=== PATIENT | male | born 1945 | race Two or more races ===

== ENCOUNTER 2016-03-08 12:54 | Emergency (ER) | payer MEDICARE ==
--- NOTE | 2016-03-08 14:36 | ED Physician Chart ---
Chief Complaint/HPI - Patient Information Date Seen:: 03/08/16 Time Seen:: 14:33 Chief Complaint:: ALCOHOL INTOXICATION. History of Present Illness:: According to transporting EMS, the patient was foundPassed out in a parking lot. The patient states that he went for a walk last evening and began drinking. When he got to the parking lot he did not trip or fall but laid down in order to sleep. He denies any headache, neck pain, chest pain, respiratory distress, nausea, vomiting, or abdominal pain. Allergies:: Allergies Allergy/AdvReac Type Severity Reaction Status Date / Time No Known Allergies Allergy Verified 09/28/15 20:54 Vitals:: Vital Signs - 8 hr 03/08/16 13:08 Temp 98.5 F HR 109 RR 22 BP 138/80 O2 Sat % 92 Review of Systems - Review of Systems General/Constitutional: No fever, No chills, No weight loss, No weakness, No edema, No loss of appetite Skin: No skin lesions, No rash Head: No headache, No light-headedness Eyes: No loss of vision, No pain, No diplopia ENT: No earache, No nasal drainage, No sore throat, Other ( The patient states he is missing multiple teeth due to cavities and trauma over the past 20 years.) Cardio Vascular: No chest pain Pulmonary: No SOB, No cough GI: No nausea, No vomiting, No diarrhea G/U: No dysuria, No frequency Musculoskeletal: No bone or joint pain, Back pain ( The patient acknowledges that he has chronic low back pain. The discomfort in his low back is not acute.) , No muscle pain Endocrine: No polyuria, No polydipsia Psychiatric: Other ( Alcohol abuse.) Hematopoietic: No bruising, No lymphadenopathy Allergic/Immuno: No urticaria, No angioedema Neurological: No syncope, No weakness, No headache, No seizure Past Medical History - Past Medical History Social History: Smoker, Other ( Retired.) Family Medical History - Family Member Mother History Unknown: Yes Ethnicity: Unknown Living Status: Physical Exam - Physical Examination General/Constitutional: No distress, Non-toxic appearing Other Gen/Cons comments:: Initially the patient was ambulatory with an unsteady and white base gate. Over the course of the emergency department stay and rehydration with the banana bag the patient became much more awake and alert and escape became normal. Other Head comments:: No visible or palpable evidence of head trauma. Eyes: PERRL, EOMI Other Eyes comments:: patient had horizontal nystagmus when looking to both the right and the left side. He had significant conjunctival hyperemia bilaterally. No exudates were present. Skin: No rash, No skin lesions, No ecchymosis ENMT: Nasal exam nl, Oropharynx nl, Tonsils nl Other ENMT comments:: Oral hydration was adequate. Patient was missing all but about four or five of his teeth. The remaining teeth are in poor repair. Normal gag reflex. Neck: Nontender, Full ROM w/o pain, No JVD, No nuchal rigidity, No mass, No stridor Respiratory: Nl effort/Exclusion Other Respiratory comments:: The patient had scattered rhonchi and expiratory wheezes throughout all dodd. Patient was in no respiratory distress and his His initial oxygen saturation was 92. This was on room air. The patient's respiration rate was 22 and he has a mild tachycardia. Cardio Vascular: RRR, No murmur, gallop, rubs, NL S1 S2 Other Cardio Vascular comments:: Adequate pulses in all four extremities. Other GI comments:: The patient's abdomen was markedly distended with ascites. There was mild prominence of the venous pattern in the abdominal wall. Bowel sounds were normally present. The abdomen was slightly taught but completely nontender to palpation. No rebound regarding present. No hernias. No pulsatile masses. I was unable to substation operator helper either the spleen or the liver. : No CVA tenderness Extremities: No tenderness or effusion, Full ROM, normal strength in all extremities, No edema Other Neuro/Psych comments:: The patient was oriented to the year and month but not the day of the week. He was oriented to the fact he was in a hospital.When asked for the date he said it was about the 11. The sensory examination was intact to light touch in all four extremities. The patient strength was normal in all four extremities. Deep tendon reflexes were +2 throughout. At the time of discharge the patient gait had normalized. Misc: No paraspinal tenderness Other Misc comments:: the patient had minimal tenderness on palpation over the bill for five region of the back. Negative straight leg raising. Labs/Radiology/EKG Results - Lab Results Results: No laboratory studies or x-ray studies were obtained. Assessment - Assessment General Assessment: CASE SUMMARY: the 70-year-old male was brought to the emergency department by EMS from a parking lot where he was sleeping on the ground. Patient had been drinking and had a strong odor of alcohol about his person. He was awake but less than fully alert. He was cooperative and went along with plans for observation until he was safe to discharge. During his stay the patient received 1 L of normal saline which contained magnesium sulfate, thiamine, folate and multivitamins. The patient was observed until he was speaking clearly and ambulating without difficulty. The patient had called a friend to come pick him up and take him home. He was released when the friend arrived. Advised to follow up with AA for help with alcoholism. MDM FOR DDX OF ACUTE INTOXICATION: NOT Delirium tremens based on history and physical examination. NOT Seizure based on patient's history and observation in the emergency department. NOT acute head injury based on history and physical examination of the patient. ED Septic Shock - . Is Septic Shock (SBP<90, OR Lactate>4 mmol\L) present?: No - <6hrs of presentation: Vital Signs: Vital Signs - 8 hr 03/08/16 13:08 Temp 98.5 F HR 109 RR 22 BP 138/80 O2 Sat % 92 Reassessment (Disposition) - Reassessment Reassessment Condition:: Improved - Diagnosis Diagnosis:: ACUTE ALCOHOL INTOXICATION, ASCITES ED Discharge Plan - Patient Disposition Admit/Discharge/Transfer: PT DISCHARGED HOME Condition at Disposition: Improved Instructions: Alcohol Intoxication
[2016-03-08] MEDS ORDERED: Multivitamin Inj 10 ML, Thiamine HCL 100 MG, Magnesium Sulfate 2 GM, Folic Acid 1 MG in... IV ONE (15:04)
[2016-03-08] MEDS ORDERED: Magnesium Sulfate 1 gm/2 mL 2mL Vial IV ONE (15:27)
[2016-03-08] MEDS ORDERED: Thiamine 100 mg/mL 2mL Vial ONE (15:29)
== END 2016-03-08 18:00 | disposition home or self-care (01) ==
LOC: ER 12:54
DX: F10.129 Alcohol abuse with intoxication, unspecified (principal); R18.8 Other ascites; F17.200 Nicotine dependence, unspecified, uncomplicated
CPT/HCPCS: 99284; 96365; J3411; J3475; J7030; X6226; Z7502

== ENCOUNTER 2016-05-01 09:05 | Inpatient (IN) | payer MEDICARE ==
[2016-05-01] MEDS ORDERED: EPINEPHRine /Lidocaine 1% 20 mL Vial INJ ONE (09:33)
[2016-05-01] MEDS ORDERED: Silver Nitrate 1 Swab TP ONE (09:34)
--- NOTE | 2016-05-01 10:01 | ED Physician Chart ---
Chief Complaint/HPI - Patient Information Date Seen:: 05/01/16 Time Seen:: 09:30 Chief Complaint:: epistaxis History of Present Illness:: spontaneous onset at 0730 of epistaxis. Patient unsure from which nostril the bleeding started. Estimates about 1 cup of blood loss. Allergies:: Allergies Allergy/AdvReac Type Severity Reaction Status Date / Time No Known Allergies Allergy Verified 05/01/16 09:14 Vitals:: Vital Signs - 8 hr 05/01/16 09:05 Temp 99.1 F HR 119 RR 16 BP 124/75 O2 Sat % 91 Historian:: Patient Review:: Nurse's Note Reviewed Review of Systems - Review of Systems General/Constitutional: No fever, No chills Skin: No skin lesions Head: No headache Eyes: No loss of vision ENT: Other (epistaxis) Cardio Vascular: No chest pain Pulmonary: No SOB GI: No nausea, No vomiting G/U: No dysuria, No frequency Musculoskeletal: No bone or joint pain Endocrine: No polyuria, No polydipsia Psychiatric: No prior psych history Hematopoietic: No bruising, No lymphadenopathy Allergic/Immuno: No urticaria, No angioedema Neurological: No syncope, No focal symptoms Past Medical History - Past Medical History Past Medical History: HTN, Dyslipidemia, Other (hypercholesterolemia) Family History: Diabetes Melitus Social History: Non Smoker, Alcohol, Other (drinks about 12 oz beer per day.) Surgical History: Hernia Psychiatricy History: None Medication: Reviewed Family Medical History - Family Member Mother History Unknown: Yes Ethnicity: Unknown Living Status: Physical Exam - Physical Examination General/Constitutional: Well-developed, well-nourished, Alert Eyes: Lids, conjuctiva normal, PERRL Skin: Nl inspection, No rash, No skin lesions, No ecchymosis ENMT: External ears, nose nl, TM canals nl Other ENMT comments:: appears that bleeding site is left nasal septum but minimal to no bleeding at present. Throat: many lower teeth absent. Neck: No nuchal rigidity Respiratory: Clear to Auscultation Other Cardio Vascular comments:: heart sounds faint; pulse regular GI: No tenderness/rebounding/guarding : No CVA tenderness Extremities: No tenderness or effusion, Full ROM Neuro/Psych: Alert/oriented, No focal deficits Misc: Normal back Assessment - Assessment General Assessment: 1% xylocaine with epi on 2 x 2 gauze in left nares; then silver nitrate cautery to left nasal septum; initially put in a rapid rhino with an anterior pack only but replaced it with one with both an anterior and posterior pack. At 1155 bleeding had stopped. Patient may well have had a posterior epistaxis. Patient instructed to see PCP tomorrow for removal of nasal pack. ED Septic Shock - . Is Septic Shock (SBP<90, OR Lactate>4 mmol\L) present?: No - <6hrs of presentation: Vital Signs: Vital Signs - 8 hr 05/01/16 09:05 Temp 99.1 F HR 119 RR 16 BP 124/75 O2 Sat % 91 Reassessment (Disposition) - Reassessment Reassessment Condition:: Improved - Diagnosis Diagnosis:: epistaxis left nares - Aftercare/Follow up Instructions Aftercare/Follow-Up Instructions:: Refer to Discharge Instructions - Patient Disposition Discharge/Transfer:: Home Condition at Disposition:: Stable, Improved ED Discharge Plan - Patient Disposition Instructions: Nosebleed
[2016-05-01] MEDS ORDERED: Sodium Chloride 0.9% 1,000 ML IV ONE (12:28)
[2016-05-01 12:38] LABS: HEMATOCRIT 34.1 % (39.0-49.0); MEAN CELL VOLUME 99.3 fl (80-99); MEAN CORPUSCULAR HGB CONC 35.3 pg (28.0-36.0); MEAN PLATELET VOLUME 11.4 fl; PLATELET COUNT 61 Th/cmm (150-400); RED BLOOD COUNT 3.43 Mil/cmm (3.80-5.80); RED CELL DISTRIBUTION WIDTH 14.7 % (11.5-20.0); WHITE BLOOD COUNT 10.4 Th/cmm (4.8-10.8)
[2016-05-01 13:04] LABS: BASOPHIL 1 % (0-3); EOSINOPHIL 1 % (0-5); NEUTROPHILS 54 % (40-80); PLATELET ESTIMATE DECREASED PLATELETS (NORMAL); PLATELET MORPHOLOGY PLATELET CLUMPS SEEN (NORMAL); TOTAL CELLS COUNTED 100
[2016-05-01 13:07] LABS: ANION GAP 12.7 (7.0-16.0); BUN - UREA NITROGEN 16 mg/dL (7-25); CALCIUM SERUM 8.5 mg/dL (8.6-10.3); CARBON DIOXIDE 21.5 mEq/L (21.0-31.0); CHLORIDE 105 mEq/L (98-107); CREATININE - SERUM 0.8 mg/dL (0.7-1.3); GLUCOSE 192 mg/dL (70-105); MAGNESIUM 1.6 mg/dL (1.9-2.7); POTASSIUM SERUM 3.2 mEq/L (3.5-5.1); SODIUM SERUM 136 mEq/L (136-145)
[2016-05-01 13:24] LABS: INR 1.26 (0.5-1.4); PROTHROMBIN TIME (TEST) 13.3 SECONDS (9.5-11.5)
[2016-05-01 14:56] LABS: ALB/GLOB RATIO 0.6 (1.0-1.8); BILIRUBIN,DIRECT 1.08 mg/dL (0.0-0.2); BILIRUBIN,TOTAL 2.3 mg/dL (0.3-1.0)
[2016-05-01 15:16] LABS: % BASOPHILS 0.7 % (0.0-2.0); % EOSINOPHILS 0.2 % (0.0-5.0); % LYMPHOCYTES 18.2 % (20.0-50.0); % MONOCYTES 7.2 % (2.0-10.0); % NEUTROPHILS 73.7 % (40.0-80.0); MEAN CELL VOLUME 98.9 fl (80-99); MEAN CORPUSCULAR HEMOGLOBIN 35.4 pg (27.0-31.0); MEAN CORPUSCULAR HGB CONC 35.8 pg (28.0-36.0); MEAN PLATELET VOLUME 9.6 fl; NEUTROPHILE ABSOLUTE 13.2 Th/cmm (1.8-8.0); RED BLOOD COUNT 2.35 Mil/cmm (3.80-5.80); RED CELL DISTRIBUTION WIDTH 14.8 % (11.5-20.0)
[2016-05-01 15:20] LABS: HEMATOCRIT 23.2 % (39.0-49.0); WHITE BLOOD COUNT 17.8 Th/cmm (4.8-10.8)
[2016-05-01 15:21] LABS: HEMOGLOBIN 8.3 gm/dL (12.6-17.4); PLATELET COUNT 101 Th/cmm (150-400)
[2016-05-01] MEDS: Pantoprazole 80 MG in Sodium Chloride 0.9% 100 ML IV SCH (15:26)
--- NOTE | 2016-05-01 16:33 | Diagnostic Imaging Report ---
Abdominal ultrasound HISTORY: Gastrointestinal bleed, pain Exam is extremely limited due to bowel gas and lack of patient cooperation. The liver, gallbladder, common bile duct and pancreatic region cannot be well seen due to the above factors. The right kidney cannot be evaluated. No obvious abnormalities involve the left kidney or spleen. IMPRESSION: 1. Extremely limited exam due to bowel gas and lack of patient cooperation. The exam is essentially nondiagnostic.
[2016-05-01] MEDS ORDERED: Mag Sulfate 2gm/50mL Premix 2 GM/50 ML BAG IV ONE (17:56)
[2016-05-01] MEDS ORDERED: KCL 20mEq/100mL Premix 20 MEQ/100 ML PIGGYBACK IV SCH (18:00)
[2016-05-01] MEDS ORDERED: D5-0.9%NS 1,000 ML IV SCH (18:21)
--- NOTE | 2016-05-01 18:28 | Admit Criteria Form ---
Admit Criteria Forms - Admit Criteria Diagnosis: EPISTAXIS Clinical Indications for Admission to Inpatient Care ( Place 'X' for any and all applicable criteria): Hospital admission is needed for appropriate care of the patient because of ANY ONE of the following [X ]I. Severe epistaxis requiring posterior packing (5)(6) [ ]II. Acute glaucoma unresponsive to emergency treatment that requires IV medication or other treatment beyond the scope observation care (1) [ ]III. Severe eye infection or inflammation (eg, uveitis) requiring IV medication such as IV acyclovir for acute retinal necrosis syndrome (1)(2)(3)(4) [ ]IV. Acute bacterial labyrinthitis(6)(7) [ ]V. Viral labyrinthitis with symptoms uncontrollable on an outpatient or observation care basis (6)(7) [ ]. Severe necrotizing external otitis unresponsive to outpatient and observation care treatment (6) [ ]VII. Otitis media requiring treatment beyond the scope of outpatient and observation care, as indicated by presence or persistence of ANY ONE of the following(6)(8)(9): [ ]a) Mastoiditis [ ]b) Suspected INFORMATION SECURITY RISK ANALYST infection [ ]c) Bacteremia [ ]d) Hemodynamic instability remaining after emergency or observation level care (as appropriate) [ ]e) Surgical drainage needed that cannot be performed as an outpatient or in an observation setting (10) [ ]VIII. Epiglottitis or supraglottitis(6)(11)(12)(13)(14) [ ]IX. Stridor or laryngospasm (unresponsive to emergency management) (6)(11)( 12)(13)(14) [ ]X. Airway blockage or inability to swallow (6)(12)(19)(20) [ ]XI. Severe sinusitis as indicated by ANY ONE of the following (6)(13)(21) [ ]a) Suspected INFORMATION SECURITY RISK ANALYST infection [ ]b) Bacteremia [ ]c) Hemodynamic instability remaining after emergency or observation level care (as appropriate) [ ]d) Outpatient and observation care antibiotic treatment have failed or are not considered appropriate [ ]e) Surgical drainage needed that cannot be performed on an outpatient basis or observation setting [ ]f) Suspected orbital involvement [ ]XII. Complicated infections; examples include (6)(13)(21)(22) [ ]a) Abscess or swelling causing airway difficulty(12) [ ]b) Bacteremia [ ]c) Hemodynamic instability remaining after emergency or observation level care (as appropriate) [ ]d) Suspected INFORMATION SECURITY RISK ANALYST spread [ ]e) Outpatient and observation care antibiotic treatment. have failed or are not considered appropriate [ ]f) Surgical drainage needed that cannot be performed on an outpatient basis or observation setting [ ]g) Other management need that cannot be performed in outpatient or observation setting [ ]XIII. Severe trauma requiring inpatient medical treatment of eye, head, pharynx, or airway (1)(23)(24)(25)(26) [ ]XIV. Acute pharyngitis or tonsillitis and ANY ONE of the following (14)(15)( 16): [ ]a) Hemodynamic instability remaining after emergency or observation level of care (as appropriate) [ ]b) Surgical drainage needed that cannot be performed in outpatient or observation setting [ ]c) Mediastinitis [ ]d) Thrombophlebitis of internal jugular vein (Lemierre syndrome) [ ]XV. Sialoadenitis and ANY ONE of the following (17)(18) [ ]a) Hemodynamic instability remaining after emergency or observation level care (as appropriate) [ ]b) Surgical drainage needed that cannot be performed in outpatient or observation setting [ ]XVI. Ischemic optic neuropathy(11) [ ]XVII.Head or Neck Disease and ALL of the following: [ ]a) Symptom or finding for which emergency and observation care have failed or are not considered appropriate (Also use General Criteria: Observation Care Form as appropriate) [ ]b) Presence of ANY ONE of the following: [ ]i) A General Admission Criteria [ ]ii) A Pediatric General Admission Criteria (Contents from HEAD and NECK DISEASE clinical indications for admission to inpatient care have been integrated in this form) The original [facility] content created by [facility] has been revised. The portions of the content which have been revised are identified through the use of italic text or in bold, and [facility] has neither reviewed nor approved the modified material. All other unmodified content is copyright [facility]. Please see references footnoted in the original [facility] edition 2016 Admit Criteria Met?: Yes
--- NOTE | 2016-05-01 20:47 | History & Physical ---
REASON FOR ADMISSION: Nosebleed requiring packing and subsequently had a blair hematemesis and hematochezia in this chronic alcoholic patient with hypertension, hyperlipidemia. HISTORY OF PRESENT ILLNESS: A 70-year-old gentleman had vomiting early in the morning, but patient still went to the work and where patient had more vomiting of fresh blood, so was brought to the Emergency Room, where beside a nosebleed on left side requiring nasal packing. While the packing was done, patient had a significant amount of fresh or burgundy color stool, and subsequently the patient had a significant amount of vomiting of fresh blood again. The patient was admitted. So far, patient is worried about going back to work and kept saying that he has the arechiga and he has to go back to the work. Denies any headache. Denies any nose pain. Denies any sore throat. Denies any chest pain, chest pressure or palpitation. The patient denies any abdominal pain whatsoever and denies any UTI symptomatology. No hematuria. No leg swelling, no abdominal swelling. No numbness or weakness in extremities. No ataxia. PAST MEDICAL HISTORY: Hypertension, hyperlipidemia. MEDICATIONS: Unknown. ALLERGIES: None. SOCIAL HISTORY: The patient drinks significant amount of rosie with alcohol everyday for the past 15-20 years. Family member is at the bedside and case d/ w them. NO smoking. No drug abuse. REVIEW OF SYSTEMS: See the history of presenting illness. No previous cirrhosis diagnosis or previous GI bleed or nosebleed. PHYSICAL EXAMINATION: VITAL SIGNS: Blood pressure is 98/49, pulse 121, respiratory rate is 22, blood pressure 142/64 on admission, temperature is 96.2, now oxygen saturation is 100% on nonrebreather mask. HEENT: Mild pallor. Patient having left nose packed with Tampon type of gauze. Oral cavity reveal dry mucosa. No petechiae, no oral candidiasis. NECK: Supple. No JVD, bruit or lymphadenopathy. LUNGS: Clear. No rales. CARDIOVASCULAR: S1, S2 normal limit. ABDOMEN: Soft, nondistended. No rebound, no guarding. Bowel sound is active. No free fluid. No CVA tenderness. EXTREMITIES: Dorsalis pedis palpable. No leg edema. CENTRAL NERVOUS SYSTEM: Slight tremors on outstretching hand. Otherwise nonfocal. Unable to do gait due to the low back pressure and active bleeding. LABORATORY TEST: WBC wnl, hemoglobin 12, MCV 99, platelet of 61,000 and neutrophil 54 on admission. Repeat blood test; WBC 17,000, hemoglobin 8.3, MCV 98 and platelet of 101,000, neutrophil 74. Protime 13, PTT 27. Sodium 136, potassium 3.2, chloride 105, bicarb 21, BUN 16, creatinine 0.8 and glucose of 192. Hemoglobin A1c 6.21, calcium 8.5, magnesium 1.6, bilirubin 2.3, direct bilirubin 1.0. AST 72 elevated, ALT normal at 23, alkaline phosphatase elevated at 163, albumin low at 2.3. Ultrasound of abdomen significant amount of gas, so unable to see gallbladder, liver or common bile duct or pancreas. No obvious abnormality noted in the left kidney or spleen. Right kidney cannot be evaluated. ASSESSMENT AND PLAN: 1. Acute hemetemesis and hematochezia, most likely from the liver cirrhosis with esophageal varices, needs to rule out esophageal ulcer or gastric or duodenal ulcer versus malignancy in upper gastrointestinal tract. 2. Nosebleed, status post packingleft nostril. 3. Severe symptomatic anemia secondary to acute hemetemesis, hematochezia and nosebleed. The patient will get 2 units packed RBC and/or 2 unit fresh frozen plasma, IV Protonix drip and IV octreotide drip. Gastroenterology consult Dr. Calzada. We will monitor hemoglobin and hematocrit q.8. x 3 and after 2 unit packed RBCs one hour later we will check the CBC again, if low, then we will transfuse more units of packed RBCs 4. Acute respiratory failure, currently nonrebreather mask 100%. 5. Full CPR. 6. Alcoholism, chronic. 7. History of hypertension and hyperlipidemia. We will obtain medication from home. Right now blood pressure is low, so we will observe and we will check gomez fetoprotein, liver, lipid panel, B12, folic acid level, iron level, ammonia level, CBC, CMP, CPK, hepatitis B surface antigen and hepatitis antibody, amylase, lipase, magnesium, TSH, uric acid in the morning. Meanwhile give D5 normal saline at 100 mL per hour with 1 ampule of multivitamin and folic acid (in a banana bag). [facility]# [id number] [facility]
[2016-05-01] MEDS: D5-0.9%NS 1,000 ML IV SCH (22:12)
[2016-05-01] MEDS ORDERED: Thiamine 100 mg/mL 2mL Vial ONE (22:34)
[2016-05-01] MEDS ORDERED: Multivitamin Inj 10 mL Vial IV ONE (22:40)
[2016-05-01] MEDS: MULTIVITAMIN IV SCH (23:29)
[2016-05-01] MEDS: FOLIC ACID IV SCH (23:29)
[2016-05-01] MEDS: THIAMINE HCL IV SCH (23:29)
[2016-05-01] MEDS: NS IV SCH (23:29)
[2016-05-01] MEDS: D5 IV SCH (23:29)
[2016-05-02 00:52] LABS: HEMOGLOBIN 9.4 gm/dL (12.6-17.4)
[2016-05-02] MEDS: Pantoprazole 80 MG in Sodium Chloride 0.9% 100 ML IV SCH ×3 (04:35→18:55)
[2016-05-02] MEDS ORDERED: Norepinephrine 4 mg/4mL Vial IV ONE (05:00)
[2016-05-02 05:29] LABS: MEAN CELL VOLUME 93.9 fl (80-99); MEAN CORPUSCULAR HEMOGLOBIN 32.8 pg (27.0-31.0); MEAN CORPUSCULAR HGB CONC 34.9 pg (28.0-36.0); MEAN PLATELET VOLUME 9.7 fl; PLATELET COUNT 85 Th/cmm (150-400); RED BLOOD COUNT 1.94 Mil/cmm (3.80-5.80); RED CELL DISTRIBUTION WIDTH 19.9 % (11.5-20.0); WHITE BLOOD COUNT 21.1 Th/cmm (4.8-10.8)
[2016-05-02 05:54] LABS: ALB/GLOB RATIO 0.6 (1.0-1.8); ANION GAP 17.4 (7.0-16.0); BILIRUBIN,TOTAL 2.4 mg/dL (0.3-1.0); BUN/CREATININE RATIO 17.8; CALCIUM SERUM 6.8 mg/dL (8.6-10.3); CARBON DIOXIDE 17.4 mEq/L (21.0-31.0); CREATININE - SERUM 1.8 mg/dL (0.7-1.3); URIC ACID 10.1 mg/dL (4.4-7.6)
[2016-05-02 06:07] LABS: POTASSIUM SERUM 6.8 mEq/L (3.5-5.1)
[2016-05-02 06:10] LABS: HEMATOCRIT 18.2 % (39.0-49.0); HEMOGLOBIN 6.3 gm/dL (12.6-17.4)
[2016-05-02 06:29] LABS: MAGNESIUM 2.1 mg/dL (1.9-2.7)
[2016-05-02 06:30] LABS: TSH 0.78 uIU/ml (0.34-5.60)
[2016-05-02 08:11] LABS: IRON SATURATION 59 % (15-55); TIBC (LCI) 217 ug/dL (250-450); UIBC 89 ug/dL (111-343)
[2016-05-02 09:55] LABS: ANISOCYTOSIS 1+; NEUTROPHILS 62 % (40-80); PLATELET ESTIMATE DECREASED PLATELETS (NORMAL); PLATELET MORPHOLOGY NORMAL (NORMAL); TOTAL CELLS COUNTED 100
[2016-05-02] MEDS ORDERED: Midazolam 1mg/ml 2 ml vial IV ONE (12:00)
[2016-05-02] MEDS ORDERED: Lidocaine 2% Gel 5 mL TP ONE (12:00)
[2016-05-02] MEDS ORDERED: Meperidine 50 mg/mL 1mL Syr ONE (12:50)
[2016-05-02 12:53] LABS: HEMATOCRIT 22.9 % (39.0-49.0)
[2016-05-02] MEDS ORDERED: Probiotic Screen MC PRN (14:02)
[2016-05-02] MEDS ORDERED: VTE Chemical Prophylaxis Screen/Admission MC PRN (14:14)
[2016-05-02] MEDS ORDERED: Thiamine 100 mg/mL 2mL Vial ONE (22:11)
[2016-05-02] MEDS ORDERED: Multivitamin Inj 10 mL Vial IV ONE (22:13)
[2016-05-02 22:41] LABS: HEMATOCRIT 22.6 % (39.0-49.0)
[2016-05-02] MEDS: D5 IV SCH (23:46)
[2016-05-02] MEDS: NS IV SCH (23:46)
[2016-05-02] MEDS: THIAMINE HCL IV SCH (23:46)
[2016-05-02] MEDS: FOLIC ACID IV SCH (23:46)
[2016-05-02] MEDS: MULTIVITAMIN IV SCH (23:46)
[2016-05-03] MEDS: Pantoprazole 80 MG in Sodium Chloride 0.9% 100 ML IV SCH ×2 (06:23→15:53)
--- NOTE | 2016-05-03 06:57 | Consultation ---
ATTENDING PHYSICIAN: Dr. Dejon Keenan. CONSULTING PHYSICIAN: Dr. Lebron De Paz. REASON FOR CONSULTATION: GI bleeding. HISTORY OF PRESENT ILLNESS: This is a 70-year-old male who is seen through the courtesy of Dr. Dejon Keenan. This patient was admitted with the anemia and the patient was found to have brown and black stool. The patient also noticed some nasal bleeding and hemoglobin this morning went down to 6.9. According to the patient's son, who is with the patient, he has been drinking a lot practically morning, evening, and at night. The patient never has been evaluated by physician and in fact, the patient does not want to go to any doctor. SOCIAL HISTORY: The patient does not smoke. The patient has been drinking heavily. PAST MEDICAL HISTORY: Remarkable for history of hypertension, no history of diabetes mellitus. MEDICATIONS: The patient is started on IV Sandostatin and Protonix here. The patient has been taking some medication for blood pressure, name of which is unknown to the patient. PAST SURGICAL HISTORY: The patient had a hernia repair about 15-20 years ago; otherwise, no other significant surgeries. REVIEW OF SYSTEMS: Remarkable for history of generalized weakness and black tarry stool. ALLERGIES: The patient is not allergic to any medication. PHYSICAL EXAMINATION: GENERAL: The patient is slightly obese male who is in no acute distress at this time. VITAL SIGNS: Temperature is 97, respiratory rate is 18, blood pressure is 90-100 systolic/60 and pulse is 100. HEENT: Head is normocephalic. Pupils are reactive to light. Conjunctivae are slightly pale. No scleral icterus. Throat is clear. NECK: Supple. The patient had a nasal packing as the patient was having epistaxis. LUNGS: Reveal no rales or rhonchi. CARDIOVASCULAR: Reveal normal sinus rhythm. No evidence of any murmur. ABDOMEN: Soft. There is no organomegaly. Bowel sounds are present. RECTAL: Not performed. LABORATORY DATA: White count is normal, hemoglobin is 6.3, hematocrit 18.2. Total bilirubin 2.3, AST 72. IMPRESSION: 1. Gastrointestinal bleeding, etiology and source is unknown. Consideration could be a bleeding varices or peptic ulcer disease or bleeding or swallowed blood from the nose. 2. Anemia. 3. Abnormal liver function test, most likely due to liver cirrhosis or acute hepatitis. RECOMMENDATION: We will continue the patient on blood transfusion and PPI and we will pursue with the EGD. Thank you for the consult, Dr. Dejon Keenan. We will follow this patient with you. JOB# [id number]
--- NOTE | 2016-05-03 07:06 | Operative Report ---
PROCEDURE: EGD with biopsy. PREOPERATIVE DIAGNOSIS: Gastrointestinal bleeding. POSTOPERATIVE DIAGNOSES: 1. Acute gastritis and gastric erosion and no significant esophageal varices. 2. Lot of blood crust noticed in the nasopharyngeal region, most likely swallowed blood from the upper respiratory tract. INDICATION OF THE PROCEDURE: This is a 70-year-old male with the known history of alcohol abuse, who was admitted with tarry color stool and the patient has never had any GI workup done, so the patient was scheduled for EGD to find the etiology and source of GI bleeding. PROCEDURE IN DETAIL: Proper consent was obtained after explaining all potential complication of the procedure. The patient was sedated with Demerol 50 mg and Versed 4 mg IV. The patient was placed in the left lateral position and after sedating the patient, video endoscope was introduced. Squamocolumnar junction was at about 40 cm and there was no significant varices and no active bleeding. Stomach was then visualized and there was a diffuse antral gastritis with gastric erosion and on retroflexion, there was one small blood clot in the fundus, but there was no active bleeding. Duodenum bulb and duodenal loop was normal. The patient tolerated procedure very well and no complication anticipated. IMPRESSION: 1. Gastric erosion and acute gastritis. 2. Lot of blood crust in the nasopharyngeal region, most likely the patient had swallowed blood from the nasopharyngeal area. RECOMMENDATIONS: We will continue the patient on Protonix and await for biopsy and BALDO test and later on, the patient will need colonoscopy, which of course can be done as an outpatient. [facility]# [id number]
[2016-05-03 07:26] LABS: HEMATOCRIT 24.6 % (39.0-49.0); HEMOGLOBIN 8.5 gm/dL (12.6-17.4); MEAN CELL VOLUME 87.7 fl (80-99); MEAN CORPUSCULAR HEMOGLOBIN 30.3 pg (27.0-31.0); MEAN CORPUSCULAR HGB CONC 34.5 pg (28.0-36.0); RED BLOOD COUNT 2.81 Mil/cmm (3.80-5.80); RED CELL DISTRIBUTION WIDTH 17.6 % (11.5-20.0)
[2016-05-03 07:32] LABS: PLATELET COUNT 63 Th/cmm (150-400); WHITE BLOOD COUNT 10.9 Th/cmm (4.8-10.8)
[2016-05-03 07:41] LABS: ALB/GLOB RATIO 0.6 (1.0-1.8); ALKALINE PHOSPHATASE 85 U/L (34-104); BILIRUBIN,TOTAL 2.4 mg/dL (0.3-1.0); BUN - UREA NITROGEN 31 mg/dL (7-25); BUN/CREATININE RATIO 22.1; CALCIUM SERUM 7.2 mg/dL (8.6-10.3); CARBON DIOXIDE 23.9 mEq/L (21.0-31.0); CHLORIDE 112 mEq/L (98-107); CREATININE - SERUM 1.4 mg/dL (0.7-1.3); GLUCOSE 204 mg/dL (70-105); MAGNESIUM 1.8 mg/dL (1.9-2.7); SGOT 697 U/L (13-39); SGPT/ALT 330 U/L (7-52); SODIUM SERUM 138 mEq/L (136-145)
[2016-05-03 07:53] LABS: POTASSIUM SERUM 3.9 mEq/L (3.5-5.1)
[2016-05-03 08:36] LABS: ANISOCYTOSIS 1+; BAND NEUTROPHILE 3 % (0-10); BASOPHIL 1 % (0-3); EOSINOPHIL 3 % (0-5); NEUTROPHILS 70 % (40-80); TOTAL CELLS COUNTED 100
[2016-05-03 08:37] LABS: PLATELET ESTIMATE DECREASED PLATELETS (NORMAL); PLATELET MORPHOLOGY GIANT PLATELETS SEEN (NORMAL); POLYCHROMASIA 1+
[2016-05-03 09:13] LABS: FOLIC ACID 5.4 ng/mL (>3.0)
[2016-05-03] MEDS ORDERED: Mag Sulfate 2gm/50mL Premix 2 GM/50 ML BAG IV ONE (10:30)
[2016-05-03] MEDS: Mag Sulfate 2gm/50mL Premix 2 GM/50 ML BAG IV ONE ×2 (10:30→14:51)
[2016-05-03] MEDS: Lactulose 10 Gm/15 mL 30mL UDC PO SCH ×3 (10:30→15:06)
[2016-05-03] MEDS ORDERED: Lactulose 10 Gm/15 mL 30mL UDC ONE (10:32)
[2016-05-03 14:11] LABS: AFP TUMOR MARKER 3.5 ng/mL (0.0-8.3); HEP C ANTIBODY <0.1 s/co ratio (0.0-0.9)
[2016-05-03] MEDS: Menthol/Zinc Oxide Oint 113gm Tube TP SCH ×2 (14:16→18:27)
[2016-05-03] MEDS: Menthol/Zinc Oxide Oint 113gm Tube TP PRN ×2 (16:09→18:27)
[2016-05-03 18:01] LABS: HEMATOCRIT 25.4 % (39.0-49.0); HEMOGLOBIN 9.1 gm/dL (12.6-17.4); MEAN CELL VOLUME 91.7 fl (80-99); MEAN CORPUSCULAR HEMOGLOBIN 32.8 pg (27.0-31.0); MEAN CORPUSCULAR HGB CONC 35.7 pg (28.0-36.0); RED BLOOD COUNT 2.77 Mil/cmm (3.80-5.80); RED CELL DISTRIBUTION WIDTH 17.6 % (11.5-20.0); WHITE BLOOD COUNT 11.4 Th/cmm (4.8-10.8)
[2016-05-03] MEDS: D5-0.9%NS 1,000 ML IV SCH ×2 (18:04→18:11)
[2016-05-03 18:09] LABS: MEAN PLATELET VOLUME 0.3 fl; PLATELET COUNT 79 Th/cmm (150-400)
[2016-05-03 18:18] LABS: URINE BILIRUBIN SMALL (NEGATIVE); URINE COLOR YELLOW; URINE GLUCOSE (UA) NEGATIVE (NEGATIVE)
[2016-05-03 18:19] LABS: URINE BACTERIA FEW /hpf (NONE SEEN); URINE BLOOD MODERATE (NEGATIVE); URINE EPITHELIAL CELLS OCCASIONAL /lpf (FEW); URINE KETONE NEGATIVE (NEGATIVE); URINE PH 5.5; URINE PROTEIN 30 mg/dL (NEGATIVE); URINE RBC 50-100 /hpf (0-5); URINE UROBILINOGEN 0.2 E.U./dL (0.2 - 1.0); URINE WBC 0-2 /hpf (0-5)
[2016-05-03 18:26] LABS: BAND NEUTROPHILE 11 % (0-10); NEUTROPHILS 63 % (40-80); TOTAL CELLS COUNTED 100
[2016-05-03 18:27] LABS: ANISOCYTOSIS 1+; PLATELET ESTIMATE DECREASED PLATELETS (NORMAL); PLATELET MORPHOLOGY NORMAL (NORMAL); POLYCHROMASIA 1+
[2016-05-04] MEDS: Polyvinyl Alcohol Ophth Soln 15 mL Bottle EACH EYE SCH ×6 (00:03→21:00)
[2016-05-04] MEDS: Menthol/Zinc Oxide Oint 113gm Tube TP PRN ×2 (00:03→05:32)
[2016-05-04] MEDS: Pantoprazole 80 MG in Sodium Chloride 0.9% 100 ML IV SCH ×2 (05:28→11:56)
[2016-05-04 05:29] LABS: ALB/GLOB RATIO 0.6 (1.0-1.8); ALKALINE PHOSPHATASE 81 U/L (34-104); AMYLASE SERUM 63 U/L (29-103); BILIRUBIN,TOTAL 3.1 mg/dL (0.3-1.0); BUN - UREA NITROGEN 26 mg/dL (7-25); CALCIUM SERUM 7.3 mg/dL (8.6-10.3); CARBON DIOXIDE 25.5 mEq/L (21.0-31.0); CHLORIDE 114 mEq/L (98-107); CREATININE - SERUM 1.3 mg/dL (0.7-1.3); GLUCOSE 218 mg/dL (70-105); MAGNESIUM 2.1 mg/dL (1.9-2.7); POTASSIUM SERUM 3.5 mEq/L (3.5-5.1); SGOT 529 U/L (13-39); SGPT/ALT 305 U/L (7-52); SODIUM SERUM 142 mEq/L (136-145)
[2016-05-04] MEDS: Lactulose 10 Gm/15 mL 30mL UDC PO SCH ×4 (05:34→21:00)
[2016-05-04] MEDS: NS IV SCH ×2 (05:37→20:46)
[2016-05-04] MEDS: FOLIC ACID IV SCH ×2 (05:37→20:46)
[2016-05-04] MEDS: MULTIVITAMIN IV SCH ×2 (05:37→20:46)
[2016-05-04] MEDS: THIAMINE HCL IV SCH ×2 (05:37→20:46)
[2016-05-04] MEDS: D5 IV SCH ×2 (05:37→20:46)
[2016-05-04 05:56] LABS: HEMOGLOBIN 8.3 gm/dL (12.6-17.4); MEAN CELL VOLUME 96.9 fl (80-99); MEAN CORPUSCULAR HEMOGLOBIN 34.5 pg (27.0-31.0); MEAN CORPUSCULAR HGB CONC 35.6 pg (28.0-36.0); MEAN PLATELET VOLUME 10.2 fl; PLATELET COUNT 73 Th/cmm (150-400); RED BLOOD COUNT 2.41 Mil/cmm (3.80-5.80); WHITE BLOOD COUNT 9.2 Th/cmm (4.8-10.8)
[2016-05-04 06:17] LABS: HEMATOCRIT 23.3 % (39.0-49.0)
[2016-05-04 08:57] LABS: ANISOCYTOSIS 1+; BAND NEUTROPHILE 9 % (0-10); NEUTROPHILS 61 % (40-80); PLATELET ESTIMATE DECREASED PLATELETS (NORMAL); POLYCHROMASIA 1+; TOTAL CELLS COUNTED 100
[2016-05-04 08:58] LABS: PLATELET MORPHOLOGY NORMAL (NORMAL)
[2016-05-04] MEDS: Menthol/Zinc Oxide Oint 113gm Tube TP SCH ×3 (10:05→17:20)
[2016-05-04] MEDS ORDERED: Albuterol/Ipratropium Neb 3 ML AERS HHN PRN (22:13)
[2016-05-04] MEDS: Albuterol/Ipratropium Neb 3 ML AERS HHN SCH (23:10)
[2016-05-05] MEDS: Pantoprazole 80 MG in Sodium Chloride 0.9% 100 ML IV SCH
[2016-05-05] MEDS: Albuterol/Ipratropium Neb 3 ML AERS HHN SCH ×6 (03:28→23:40)
[2016-05-05 04:56] LABS: % EOSINOPHILS 1.7 % (0.0-5.0); % LYMPHOCYTES 22.9 % (20.0-50.0); % MONOCYTES 12.6 % (2.0-10.0); % NEUTROPHILS 61.8 % (40.0-80.0); HEMOGLOBIN 8.1 gm/dL (12.6-17.4); MEAN CELL VOLUME 96.6 fl (80-99); MEAN CORPUSCULAR HEMOGLOBIN 35.6 pg (27.0-31.0); MEAN CORPUSCULAR HGB CONC 36.8 pg (28.0-36.0); MEAN PLATELET VOLUME 8.6 fl; NEUTROPHILE ABSOLUTE 5.1 Th/cmm (1.8-8.0); RED BLOOD COUNT 2.29 Mil/cmm (3.80-5.80); RED CELL DISTRIBUTION WIDTH 18.3 % (11.5-20.0); WHITE BLOOD COUNT 8.2 Th/cmm (4.8-10.8)
[2016-05-05 05:08] LABS: HEMATOCRIT 22.1 % (39.0-49.0)
[2016-05-05 05:09] LABS: PLATELET COUNT 91 Th/cmm (150-400)
[2016-05-05 05:12] LABS: ALB/GLOB RATIO 0.6 (1.0-1.8); ALKALINE PHOSPHATASE 83 U/L (34-104); AMYLASE SERUM 57 U/L (29-103); BILIRUBIN,TOTAL 4.1 mg/dL (0.3-1.0); BUN - UREA NITROGEN 21 mg/dL (7-25); BUN/CREATININE RATIO 17.5; CALCIUM SERUM 7.3 mg/dL (8.6-10.3); CARBON DIOXIDE 26.2 mEq/L (21.0-31.0); CHLORIDE 116 mEq/L (98-107); CREATININE - SERUM 1.2 mg/dL (0.7-1.3); GLUCOSE 176 mg/dL (70-105); POTASSIUM SERUM 3.2 mEq/L (3.5-5.1); SGOT 330 U/L (13-39); SGPT/ALT 243 U/L (7-52); SODIUM SERUM 145 mEq/L (136-145)
[2016-05-05] MEDS: Polyvinyl Alcohol Ophth Soln 15 mL Bottle EACH EYE SCH ×5 (06:38→22:00)
[2016-05-05] MEDS: Budesonide 0.5 Mg/2 mL Ud HHN SCH ×2 (07:11→19:15)
[2016-05-05] MEDS: Menthol/Zinc Oxide Oint 113gm Tube TP PRN (09:34)
[2016-05-05] MEDS: Lactulose 10 Gm/15 mL 30mL UDC PO SCH ×3 (09:35→20:52)
--- NOTE | 2016-05-05 09:36 | Diagnostic Imaging Report ---
CHEST X-RAY: AP view INDICATION: Infiltrate, aspiration COMPARISON: None FINDINGS: Bibasal densities are noted. Low lung volumes are seen. Heart size at upper limits of normal. Note exam is limited due to body habitus and patient rotation. Degenerative changes of spine are noted IMPRESSION: Bibasal densities suggestive of small bilateral pleural effusions. There is probable bibasal atelectasis versus less likely infiltrate. Atherosclerotic vascular disease.
[2016-05-05] MEDS: Menthol/Zinc Oxide Oint 113gm Tube TP SCH ×4 (09:38→21:49)
[2016-05-05 11:46] LABS: ABG SOURCE Arterial; ALLEN TEST YES; BE(B) 2.4 mEq/L (-3.0-3.0); HCO3 26.4 mEq/L (20.0-26.0); pH 7.45 (7.35-7.45)
[2016-05-05 11:47] LABS: CRITICAL VALUES REPORTED BY SH; FIO2 37
--- NOTE | 2016-05-05 14:43 | Pathology Report ---
[id number] Collection date: 05/02/2016 Surgeon: Dr. Errol De Paz Specimen Description: Antrum biopsy Gross Description: Received in formalin are three rodrigues soft tissue fragments ranging from 0.1 to 0.2 cm in greatest dimension. Totally submitted in one cassette. Microscopic Description: The histologic sections show gastric mucosa with chronic inflammation present consisting of increased numbers of plasma cells and lymphocytes. The Giemsa stain shows no evidence for Helicobacter pylori. Diagnosis: 1. Chronic gastritis, antrum biopsy. 2. The Giemsa stain is negative for Helicobacter pylori. [facility]# [id number] [facility]
[2016-05-05] MEDS: NS IV SCH (21:00)
[2016-05-05] MEDS: THIAMINE HCL IV SCH (21:00)
[2016-05-05] MEDS: D5 IV SCH (21:00)
[2016-05-05] MEDS: FOLIC ACID IV SCH (21:00)
[2016-05-05] MEDS: MULTIVITAMIN IV SCH (21:00)
[2016-05-06] MEDS: Albuterol/Ipratropium Neb 3 ML AERS HHN SCH ×6 (03:11→22:14)
[2016-05-06 05:16] LABS: % BASOPHILS 0.9 % (0.0-2.0); % EOSINOPHILS 3.6 % (0.0-5.0); % LYMPHOCYTES 25.4 % (20.0-50.0); % NEUTROPHILS 56.1 % (40.0-80.0); HEMOGLOBIN 8.3 gm/dL (12.6-17.4); MEAN CELL VOLUME 95.6 fl (80-99); MEAN CORPUSCULAR HEMOGLOBIN 34.1 pg (27.0-31.0); MEAN CORPUSCULAR HGB CONC 35.7 pg (28.0-36.0); MEAN PLATELET VOLUME 8.9 fl; NEUTROPHILE ABSOLUTE 4.5 Th/cmm (1.8-8.0); PLATELET COUNT 119 Th/cmm (150-400); RED BLOOD COUNT 2.43 Mil/cmm (3.80-5.80)
[2016-05-06 05:33] LABS: HEMATOCRIT 23.2 % (39.0-49.0)
[2016-05-06 05:36] LABS: ALB/GLOB RATIO 0.5 (1.0-1.8); ALKALINE PHOSPHATASE 86 U/L (34-104); AMYLASE SERUM 89 U/L (29-103); ANION GAP 6.5 (7.0-16.0); BILIRUBIN,TOTAL 4.8 mg/dL (0.3-1.0); BUN - UREA NITROGEN 17 mg/dL (7-25); BUN/CREATININE RATIO 13.1; CALCIUM SERUM 7.5 mg/dL (8.6-10.3); CARBON DIOXIDE 25.6 mEq/L (21.0-31.0); CHLORIDE 122 mEq/L (98-107); CREATININE - SERUM 1.3 mg/dL (0.7-1.3); GLUCOSE 164 mg/dL (70-105); POTASSIUM SERUM 3.1 mEq/L (3.5-5.1); SGOT 207 U/L (13-39); SGPT/ALT 189 U/L (7-52); SODIUM SERUM 151 mEq/L (136-145)
[2016-05-06] MEDS: Pantoprazole 80 MG in Sodium Chloride 0.9% 100 ML IV SCH ×3 (06:07→20:22)
[2016-05-06] MEDS: Budesonide 0.5 Mg/2 mL Ud HHN SCH ×2 (07:17→19:00)
[2016-05-06] MEDS: Polyvinyl Alcohol Ophth Soln 15 mL Bottle EACH EYE SCH ×5 (07:27→21:42)
[2016-05-06] MEDS: Lactulose 10 Gm/15 mL 30mL UDC PO SCH ×3 (08:47→21:42)
[2016-05-06] MEDS: Menthol/Zinc Oxide Oint 113gm Tube TP SCH ×2 (08:48→13:30)
[2016-05-06] MEDS ORDERED: Potassium Phosphate 20 MMOLE in Sodium Chloride 0.9% 250 ML IV ONE (15:00)
[2016-05-06] MEDS: D5-0.45NS w/20 mEq KCL 1,000 ML IV SCH (16:06)
[2016-05-06] MEDS: THIAMINE HCL IV SCH (21:39)
[2016-05-06] MEDS: D5 IV SCH (21:39)
[2016-05-06] MEDS: MULTIVITAMIN IV SCH (21:39)
[2016-05-06] MEDS: FOLIC ACID IV SCH (21:39)
[2016-05-06] MEDS: NS IV SCH (21:39)
[2016-05-07] MEDS: D5-0.45NS w/20 mEq KCL 1,000 ML IV SCH ×2 (01:22→22:30)
[2016-05-07] MEDS: Albuterol/Ipratropium Neb 3 ML AERS HHN SCH ×6 (02:18→22:42)
[2016-05-07 05:10] LABS: % BASOPHILS 1.1 % (0.0-2.0); % EOSINOPHILS 4.4 % (0.0-5.0); % LYMPHOCYTES 22.7 % (20.0-50.0); % MONOCYTES 14.3 % (2.0-10.0); % NEUTROPHILS 57.5 % (40.0-80.0); HEMATOCRIT 25.1 % (39.0-49.0); HEMOGLOBIN 9.1 gm/dL (12.6-17.4); MEAN CELL VOLUME 97.4 fl (80-99); MEAN CORPUSCULAR HEMOGLOBIN 35.3 pg (27.0-31.0); MEAN CORPUSCULAR HGB CONC 36.2 pg (28.0-36.0); MEAN PLATELET VOLUME 9.2 fl; NEUTROPHILE ABSOLUTE 4.6 Th/cmm (1.8-8.0); PLATELET COUNT 128 Th/cmm (150-400); RED BLOOD COUNT 2.58 Mil/cmm (3.80-5.80); RED CELL DISTRIBUTION WIDTH 19.1 % (11.5-20.0); WHITE BLOOD COUNT 8.1 Th/cmm (4.8-10.8)
[2016-05-07 05:42] LABS: ALB/GLOB RATIO 0.5 (1.0-1.8); ALKALINE PHOSPHATASE 93 U/L (34-104); ANION GAP 7.4 (7.0-16.0); BILIRUBIN,TOTAL 5.8 mg/dL (0.3-1.0); BUN - UREA NITROGEN 13 mg/dL (7-25); CALCIUM SERUM 7.7 mg/dL (8.6-10.3); CARBON DIOXIDE 25.7 mEq/L (21.0-31.0); CHLORIDE 120 mEq/L (98-107); CREATININE - SERUM 1.3 mg/dL (0.7-1.3); GLUCOSE 149 mg/dL (70-105); POTASSIUM SERUM 3.1 mEq/L (3.5-5.1); SGOT 153 U/L (13-39); SGPT/ALT 156 U/L (7-52); SODIUM SERUM 150 mEq/L (136-145)
[2016-05-07] MEDS: Pantoprazole 80 MG in Sodium Chloride 0.9% 100 ML IV SCH ×2 (05:43→15:12)
[2016-05-07] MEDS: Polyvinyl Alcohol Ophth Soln 15 mL Bottle EACH EYE SCH ×5 (06:00→21:50)
[2016-05-07] MEDS: Budesonide 0.5 Mg/2 mL Ud HHN SCH ×2 (07:31→18:39)
[2016-05-07] MEDS: Lactulose 10 Gm/15 mL 30mL UDC PO SCH ×2 (09:40→21:15)
--- NOTE | 2016-05-07 22:23 | Progress Notes ---
This is a followup visit for Dr. Dejon Keenan. PROBLEM LIST: 1. Alcohol intoxication. 2. Alcoholic encephalopathy, possibly hepatic disease. SYMPTOMS: Nil. According to nursing staff, he periodically gets agitated, restless, but able to take his food and also able to take medication. Gets on and off restless, etc. PHYSICAL EXAMINATION: VITAL SIGNS: The patient's recorded vitals: Temperature is 98.0, blood pressure 134/70, and saturation 95% on 2 liters. NECK: Veins could not be visualized. Good bilateral carotid upstroke. CHEST: Shows diminished air entry with occasional rhonchi. ABDOMEN: Slightly distended. EXTREMITIES: Shows no peripheral edema. LABORATORY DATA: White count is 8.1, hemoglobin 9.1, and the patient's sodium is 150, and potassium is 3.1. The patient is still has abnormal LFT and ammonia is 70. ASSESSMENT: The patient is clinically unchanged, may be slightly better with alcoholic-related issue with hepatic encephalopathy with mild degree of liver abnormality. PLANS AND SUGGESTIONS: We will continue current treatment. Care and plan with the nursing staff and see how he does in the next few days and go from there. JOB# [id number]
[2016-05-08] MEDS: THIAMINE HCL IV SCH (00:10)
[2016-05-08] MEDS: D5 IV SCH (00:10)
[2016-05-08] MEDS: NS IV SCH (00:10)
[2016-05-08] MEDS: FOLIC ACID IV SCH (00:10)
[2016-05-08] MEDS: MULTIVITAMIN IV SCH (00:10)
[2016-05-08] MEDS: Pantoprazole 80 MG in Sodium Chloride 0.9% 100 ML IV SCH ×2 (01:23→21:20)
[2016-05-08] MEDS: Albuterol/Ipratropium Neb 3 ML AERS HHN SCH ×6 (02:58→22:39)
[2016-05-08] MEDS: Polyvinyl Alcohol Ophth Soln 15 mL Bottle EACH EYE SCH ×5 (05:29→22:00)
[2016-05-08 07:24] LABS: ALB/GLOB RATIO 0.5 (1.0-1.8); ALKALINE PHOSPHATASE 91 U/L (34-104); ANION GAP 6.4 (7.0-16.0); BILIRUBIN,DIRECT 4.78 mg/dL (0.0-0.2); BILIRUBIN,TOTAL 7.1 mg/dL (0.3-1.0); BUN - UREA NITROGEN 10 mg/dL (7-25); BUN/CREATININE RATIO 7.7; CALCIUM SERUM 7.5 mg/dL (8.6-10.3); CARBON DIOXIDE 25.8 mEq/L (21.0-31.0); CHLORIDE 118 mEq/L (98-107); CREATININE - SERUM 1.3 mg/dL (0.7-1.3); GLUCOSE 162 mg/dL (70-105); POTASSIUM SERUM 3.2 mEq/L (3.5-5.1); SGOT 135 U/L (13-39); SGPT/ALT 125 U/L (7-52); SODIUM SERUM 147 mEq/L (136-145)
[2016-05-08 07:33] LABS: % BASOPHILS 0.9 % (0.0-2.0); % EOSINOPHILS 4.3 % (0.0-5.0); % LYMPHOCYTES 22.7 % (20.0-50.0); % MONOCYTES 8.9 % (2.0-10.0); % NEUTROPHILS 63.2 % (40.0-80.0); HEMOGLOBIN 8.5 gm/dL (12.6-17.4); MEAN CELL VOLUME 96.3 fl (80-99); MEAN CORPUSCULAR HEMOGLOBIN 34.7 pg (27.0-31.0); MEAN PLATELET VOLUME 9.3 fl; NEUTROPHILE ABSOLUTE 5.1 Th/cmm (1.8-8.0); PLATELET COUNT 137 Th/cmm (150-400); RED BLOOD COUNT 2.46 Mil/cmm (3.80-5.80); RED CELL DISTRIBUTION WIDTH 18.9 % (11.5-20.0); WHITE BLOOD COUNT 8.2 Th/cmm (4.8-10.8)
[2016-05-08] MEDS: Budesonide 0.5 Mg/2 mL Ud HHN SCH ×2 (07:38→19:33)
[2016-05-08 07:49] LABS: HEMATOCRIT 23.7 % (39.0-49.0)
[2016-05-08] MEDS: Lactulose 10 Gm/15 mL 30mL UDC PO SCH ×4 (08:37→20:50)
[2016-05-08] MEDS: D5-0.45NS w/20 mEq KCL 1,000 ML IV SCH (21:00)
[2016-05-09] MEDS: Albuterol/Ipratropium Neb 3 ML AERS HHN SCH ×5 (02:12→19:57)
--- NOTE | 2016-05-09 02:49 | Progress Notes ---
PROBLEM LIST: 1. Acute alcoholic encephalopathy. 2. Hepatic failure. 3. ____ secondary to the above. SYMPTOMS: Nil, appears to be little bit more calmer today, not in any respiratory distress, etc., and occasionally answers the questions. PHYSICAL EXAMINATION: VITAL SIGNS: The patient's recorded vital signs, temperature is 97, heart rate is in 80s, blood pressure 113/76, saturation 95% on 2 liters. GENERAL: Still icteric slightly, oral cavity slightly dry mouth. NECK: No nodes in the neck could be palpated. CHEST: Shows diminished air entry. ABDOMEN: Slightly distended. EXTREMITIES: Shows mild trace of peripheral edema. LABORATORY DATA: The patient's lab data shows white count is 8.2, hemoglobin is around 8.5, not significantly changed, and platelet is 147. The patient's electrolytes, sodium is 147, potassium is 3.2, and the patient's total bilirubin is 7.1, still abnormal LFT and the patient's ammonia level has not significantly changed. ASSESSMENT: The patient clinically looks little bit more calmer, still encephalopathic with alcoholic hepatitis, possibly cirrhosis of liver. PLANS AND SUGGESTIONS: Continue current treatment. We will follow up electrolytes, watch CBC, repeat ammonia, and continue current conservative treatment, etc., and go from there. JOB# [id number]
[2016-05-09] MEDS: D5-0.45NS w/20 mEq KCL 1,000 ML IV SCH ×2 (05:23→17:33)
[2016-05-09 05:25] LABS: % BASOPHILS 0.8 % (0.0-2.0); % EOSINOPHILS 3.7 % (0.0-5.0); % MONOCYTES 8.4 % (2.0-10.0); % NEUTROPHILS 68.1 % (40.0-80.0); HEMATOCRIT 25.3 % (39.0-49.0); HEMOGLOBIN 9.2 gm/dL (12.6-17.4); MEAN CELL VOLUME 96.6 fl (80-99); MEAN CORPUSCULAR HEMOGLOBIN 34.9 pg (27.0-31.0); MEAN CORPUSCULAR HGB CONC 36.2 pg (28.0-36.0); MEAN PLATELET VOLUME 8.7 fl; NEUTROPHILE ABSOLUTE 5.7 Th/cmm (1.8-8.0); PLATELET COUNT 143 Th/cmm (150-400); RED BLOOD COUNT 2.62 Mil/cmm (3.80-5.80); RED CELL DISTRIBUTION WIDTH 19.2 % (11.5-20.0); WHITE BLOOD COUNT 8.4 Th/cmm (4.8-10.8)
[2016-05-09 05:28] LABS: ALB/GLOB RATIO 0.5 (1.0-1.8); BILIRUBIN,DIRECT 5.64 mg/dL (0.0-0.2); BILIRUBIN,TOTAL 8.7 mg/dL (0.3-1.0)
[2016-05-09] MEDS: Polyvinyl Alcohol Ophth Soln 15 mL Bottle EACH EYE SCH ×5 (06:38→22:00)
[2016-05-09] MEDS: Budesonide 0.5 Mg/2 mL Ud HHN SCH ×2 (07:28→19:57)
[2016-05-09] MEDS: Lactulose 10 Gm/15 mL 30mL UDC PO SCH ×3 (08:42→21:00)
[2016-05-09] MEDS ORDERED: OCTREOTIDE ACETATE 50 MCG/ML VIAL IV ONE (14:28)
[2016-05-09 17:29] LABS: % BASOPHILS 0.4 % (0.0-2.0); % EOSINOPHILS 3.4 % (0.0-5.0); % LYMPHOCYTES 22.8 % (20.0-50.0); % MONOCYTES 7.7 % (2.0-10.0); % NEUTROPHILS 65.7 % (40.0-80.0); HEMOGLOBIN 8.4 gm/dL (12.6-17.4); MEAN CELL VOLUME 99.3 fl (80-99); MEAN CORPUSCULAR HEMOGLOBIN 35.9 pg (27.0-31.0); MEAN CORPUSCULAR HGB CONC 36.1 pg (28.0-36.0); MEAN PLATELET VOLUME 9.1 fl; NEUTROPHILE ABSOLUTE 5.8 Th/cmm (1.8-8.0); PLATELET COUNT 137 Th/cmm (150-400); RED BLOOD COUNT 2.35 Mil/cmm (3.80-5.80); RED CELL DISTRIBUTION WIDTH 19.5 % (11.5-20.0); WHITE BLOOD COUNT 8.8 Th/cmm (4.8-10.8)
[2016-05-09 17:31] LABS: HEMATOCRIT 23.4 % (39.0-49.0)
[2016-05-09] MEDS: Pantoprazole 80 MG in Sodium Chloride 0.9% 100 ML IV SCH (18:46)
[2016-05-09] MEDS: Menthol/Zinc Oxide Oint 113gm Tube TP PRN (21:00)
[2016-05-09 23:45] LABS: HEMOGLOBIN 8.8 gm/dL (12.6-17.4)
[2016-05-09 23:47] LABS: HEMATOCRIT 25.8 % (39.0-49.0)
[2016-05-10 00:14] LABS: INR 1.51 (0.5-1.4)
--- NOTE | 2016-05-10 00:45 | Progress Notes ---
PROBLEM LIST: 1. Alcoholic encephalopathy. 2. Cirrhosis of liver. SYMPTOMS: Nil. Joey is more cooperative, not in any acute distress. PHYSICAL EXAMINATION: VITAL SIGNS: Temperature is 98.3, blood pressure 121/68, saturation 96. NECK: Veins not visualized. Good bilateral carotid upstroke. CHEST: Shows diminished air entry with occasional rhonchi. ABDOMEN: Slightly distended. LABORATORY DATA: Shows a white count is 8800, hematocrit is 23 and the patient's liver profile still shows bilirubin is slightly trending on a higher side with direct bilirubin 5.6 and total 8.7 and ammonia is slightly dropped. ASSESSMENT: The patient is clinically not much changed, continue to be in periodic encephalopathic with cirrhosis of liver, alcohol intoxication. PLANS AND SUGGESTIONS: We will continue current regimen of treatment. We will follow through lab test again tomorrow and see how it is and go from there. JOB# [id number]
[2016-05-10] MEDS: Albuterol/Ipratropium Neb 3 ML AERS HHN SCH ×6 (03:12→22:48)
[2016-05-10] MEDS: Menthol/Zinc Oxide Oint 113gm Tube TP PRN (04:30)
[2016-05-10 05:12] LABS: % EOSINOPHILS 3.4 % (0.0-5.0); % LYMPHOCYTES 23.5 % (20.0-50.0); % MONOCYTES 6.5 % (2.0-10.0); % NEUTROPHILS 65.6 % (40.0-80.0); MEAN CELL VOLUME 99.3 fl (80-99); MEAN CORPUSCULAR HEMOGLOBIN 35.4 pg (27.0-31.0); MEAN CORPUSCULAR HGB CONC 35.7 pg (28.0-36.0); MEAN PLATELET VOLUME 8.9 fl; NEUTROPHILE ABSOLUTE 6.4 Th/cmm (1.8-8.0); PLATELET COUNT 161 Th/cmm (150-400); RED BLOOD COUNT 2.35 Mil/cmm (3.80-5.80); RED CELL DISTRIBUTION WIDTH 19.2 % (11.5-20.0); WHITE BLOOD COUNT 9.7 Th/cmm (4.8-10.8)
[2016-05-10] MEDS: Polyvinyl Alcohol Ophth Soln 15 mL Bottle EACH EYE SCH ×7 (05:19→22:00)
[2016-05-10] MEDS: D5-0.45NS w/20 mEq KCL 1,000 ML IV SCH ×3 (05:23→23:41)
[2016-05-10 05:32] LABS: HEMATOCRIT 23.4 % (39.0-49.0); HEMOGLOBIN 8.3 gm/dL (12.6-17.4)
[2016-05-10 06:02] LABS: ALB/GLOB RATIO 0.4 (1.0-1.8); ALKALINE PHOSPHATASE 87 U/L (34-104); ANION GAP 6.8 (7.0-16.0); BILIRUBIN,DIRECT 5.19 mg/dL (0.0-0.2); BILIRUBIN,TOTAL 8.3 mg/dL (0.3-1.0); BUN - UREA NITROGEN 9 mg/dL (7-25); BUN/CREATININE RATIO 6.9; CALCIUM SERUM 7.5 mg/dL (8.6-10.3); CARBON DIOXIDE 24.4 mEq/L (21.0-31.0); CHLORIDE 116 mEq/L (98-107); CREATININE - SERUM 1.3 mg/dL (0.7-1.3); GLUCOSE 141 mg/dL (70-105); POTASSIUM SERUM 3.2 mEq/L (3.5-5.1); SGOT 102 U/L (13-39); SGPT/ALT 87 U/L (7-52); SODIUM SERUM 144 mEq/L (136-145)
[2016-05-10] MEDS: Budesonide 0.5 Mg/2 mL Ud HHN SCH ×2 (07:27→18:39)
[2016-05-10] MEDS: Pantoprazole 80 MG in Sodium Chloride 0.9% 100 ML IV SCH ×3 (09:01→15:43)
--- NOTE | 2016-05-10 09:20 | Diagnostic Imaging Report ---
CHEST X-RAY: AP view INDICATION: NG tube placement COMPARISON: 05/05/2016 FINDINGS: NG tube is seen with tip in the stomach. Gas-filled loops of bowel are noted, nonspecific. The lung bases demonstrate atelectatic changes. IMPRESSION: NG tube within stomach. May advanced 5 cm for optimal positioning.
--- NOTE | 2016-05-10 09:24 | Diagnostic Imaging Report ---
CHEST X-RAY: AP view INDICATION: NG tube repositioning COMPARISON: Chest x-ray on 05/09/2016 FINDINGS: NG tube has been advanced with tip along the distal stomach. Bibasal atelectatic changes are noted. IMPRESSION: NG tube advanced, with tip along the distal stomach.
--- NOTE | 2016-05-10 10:06 | Diagnostic Imaging Report ---
CT abdomen and pelvis without intravenous contrast Indication: GI bleeding Comparison: Ultrasound abdomen on 05/01/2016, Technique: Axial images were obtained from the lung bases to the bilateral proximal femurs without IV contrast. Coronal reconstructions were made. total DLP: 680, CTDI11.8 FINDINGS: Small bilateral effusions are seen with left basal consolidative changes. Small pericardial effusion is also noted. NG tube is seen within the stomach. Assessment of the solid organs is limited due to lack of IV contrast. Cirrhotic appearing liver is seen with mild enlargement of the left lobe. There is faint high density within the gallbladder which may be due to vicarious excretion of contrast or may represent sludge. No focal splenic lesions identified. Severe pancreatic atrophy is noted. No focal adrenal lesions. Nonspecific bilateral perinephric inflammatory changes are noted. No hydronephrosis Peters catheter seen within collapsed urinary bladder. Mild to moderate generalized ascites is seen with inflammatory changes and hazy changes of the mesenteric fat planes. No free air. No evidence of bowel obstruction. Appendix is not well-visualized. Mild atherosclerosis is noted. Degenerative changes of spine are noted. Anasarca. IMPRESSION: Mild to moderate generalized ascites with nonspecific inflammatory changes seen throughout the mesenteric fat planes. Cirrhotic appearing liver. Faint high density within the gallbladder which may be due to vicarious excretion of contrast or represent sludge. Mild atherosclerotic vascular disease. Small bilateral effusions with right basal consolidative changes. Anasarca.
[2016-05-10] MEDS: Lactulose 10 Gm/15 mL 30mL UDC PO SCH ×3 (10:28→21:38)
[2016-05-10 12:39] VITALS: BP 106/78
[2016-05-11] MEDS: Menthol/Zinc Oxide Oint 113gm Tube TP PRN (01:00)
[2016-05-11] MEDS: Albuterol/Ipratropium Neb 3 ML AERS HHN SCH ×6 (03:34→23:20)
[2016-05-11 05:03] LABS: HEMOGLOBIN 8.6 gm/dL (12.6-17.4)
[2016-05-11 05:10] LABS: INR 1.52 (0.5-1.4); PROTHROMBIN TIME (TEST) 16.1 SECONDS (9.5-11.5)
[2016-05-11 05:20] LABS: % BASOPHILS 0.9 % (0.0-2.0); % EOSINOPHILS 3.2 % (0.0-5.0); % LYMPHOCYTES 20.1 % (20.0-50.0); % NEUTROPHILS 69.8 % (40.0-80.0); MEAN CELL VOLUME 99.8 fl (80-99); MEAN CORPUSCULAR HEMOGLOBIN 36.4 pg (27.0-31.0); MEAN CORPUSCULAR HGB CONC 36.5 pg (28.0-36.0); MEAN PLATELET VOLUME 9.7 fl; NEUTROPHILE ABSOLUTE 7.2 Th/cmm (1.8-8.0); PLATELET COUNT 172 Th/cmm (150-400); RED BLOOD COUNT 2.35 Mil/cmm (3.80-5.80); RED CELL DISTRIBUTION WIDTH 19.6 % (11.5-20.0); WHITE BLOOD COUNT 10.3 Th/cmm (4.8-10.8)
[2016-05-11 05:28] LABS: ALB/GLOB RATIO 0.5 (1.0-1.8); ALKALINE PHOSPHATASE 91 U/L (34-104); ANION GAP 7.6 (7.0-16.0); BILIRUBIN,DIRECT 5.39 mg/dL (0.0-0.2); BILIRUBIN,TOTAL 8.5 mg/dL (0.3-1.0); BUN - UREA NITROGEN 9 mg/dL (7-25); BUN/CREATININE RATIO 6.9; CALCIUM SERUM 7.8 mg/dL (8.6-10.3); CARBON DIOXIDE 25.8 mEq/L (21.0-31.0); CHLORIDE 115 mEq/L (98-107); CREATININE - SERUM 1.3 mg/dL (0.7-1.3); GLUCOSE 159 mg/dL (70-105); POTASSIUM SERUM 3.4 mEq/L (3.5-5.1); SGOT 91 U/L (13-39); SGPT/ALT 75 U/L (7-52); SODIUM SERUM 145 mEq/L (136-145)
[2016-05-11 05:40] LABS: HEMATOCRIT 23.4 % (39.0-49.0)
[2016-05-11] MEDS: Budesonide 0.5 Mg/2 mL Ud HHN SCH ×2 (07:51→19:20)
[2016-05-11] MEDS: Lactobacillus Rhamnosus 10 Billion CFU Capsule GT SCH (08:05)
[2016-05-11] MEDS: Lactulose 10 Gm/15 mL 30mL UDC PO SCH ×3 (08:05→21:00)
[2016-05-11] MEDS: Pantoprazole 80 MG in Sodium Chloride 0.9% 100 ML IV SCH ×2 (08:50→21:01)
[2016-05-11] MEDS: Polyvinyl Alcohol Ophth Soln 15 mL Bottle EACH EYE SCH ×4 (09:44→22:00)
--- NOTE | 2016-05-11 10:29 | Progress Notes ---
PULMONARY PROGRESS NOTE PROBLEM LIST: 1. Acute alcoholic encephalopathy. 2. Possibly lower gastrointestinal bleeding. 3. Cirrhosis of liver. SYMPTOMS: Nil. Still agitated, restless and had some blood-colored clots from the rectum and ____ nasogastric tube is getting ____ currently. At this particular time, no distress, etc. PHYSICAL EXAMINATION: VITAL SIGNS: Temperature is 98.7, blood pressure 106/78 and saturation 96 on 2 liters. NECK: Veins could not be visualized. CHEST: Shows diminished air entry with occasional rhonchi. HEART: Regular. ABDOMEN: Quite distended, soft. EXTREMITIES: Shows slight trace of peripheral edema. LABORATORY DATA: The patient's white count is 9.7 and hematocrit is 23. Potassium is 3.2. The patient's LFT, bilirubin is still high 8.3 total, direct is 5.19. No significant change, still elevation of SGOT. Ammonia again is around 54. Albumin is 1.7. ASSESSMENT: The patient has multiple medical problems related to his alcohol encephalopathy as well as possibly cirrhosis, etc. PLANS AND SUGGESTIONS: Discuss with RN ____ consider and getting a PICC line and PPN. Colonoscopy hopefully tomorrow morning and recheck the lab test tomorrow again and go from there. JOB# [id number]
--- NOTE | 2016-05-11 10:42 | Operative Report ---
INPATIENT GASTROINTESTINAL PROCEDURE PROCEDURE: Colonoscopy. REFERRING PHYSICIAN: Dr. Dejon Keenan. REASON FOR PROCEDURE: Rectal bleeding. CONSENT: Risks, benefits, alternatives, nature, indication, possible outcomes were discussed. Mentioned bleeding, infection, perforation, , disability, cardiopulmonary distress and arrest, missed lesion and cancers, need for surgery. The patient's family expressed understanding and provided informed consent. PREOPERATIVE DIAGNOSES: Rectal bleeding, cirrhosis. POSTOPERATIVE DIAGNOSES: Suboptimal exam and internal hemorrhoids. MEDICATIONS: None. The patient already had received Ativan on the floor and is sedated prior to the procedure. DESCRIPTION OF PROCEDURE: The patient was placed on left side. Rectal exam was performed and was normal. Pediatric colonoscope was advanced from the anus into the proximal ascending colon, right in front of the ileocecal valve, could not reach the cecum base despite turning the patient and providing counter pressure. Scope slowly withdrawn evaluating the mucosa along the way. Once in the rectum, retroflexion was attempted, but the rectal wall was too small. Scope was then straightened and slowly withdrawn through the rectum and removed along with air. COMPLICATIONS: None. FINDINGS: 1. Suboptimal prep, small lesions could be missed. 2. Reached the proximal ascending colon in front of the ileocecal valve. 3. Internal hemorrhoids. 4. No active bleeding was seen. RECOMMENDATIONS: 1. Anusol suppositories. 2. Barium enema to clear the entire colon. Thank you for allowing me to participate. Please call me if any questions. [facility]# [id number]
--- NOTE | 2016-05-11 10:51 | Diagnostic Imaging Report ---
CHEST X-RAY: AP view INDICATION: NG tube placement COMPARISON: 05/10/2016 FINDINGS: NG tube is seen with tip in the stomach. Bibasal atelectatic changes are noted. IMPRESSION: NG tube within the stomach.
[2016-05-11] MEDS: D5-0.45NS w/20 mEq KCL 1,000 ML IV SCH (13:23)
[2016-05-12] MEDS: Menthol/Zinc Oxide Oint 113gm Tube TP PRN (00:30)
[2016-05-12] MEDS: D5-0.45NS w/20 mEq KCL 1,000 ML IV SCH ×2 (01:53→02:42)
[2016-05-12] MEDS: Albuterol/Ipratropium Neb 3 ML AERS HHN SCH ×4 (02:44→14:51)
[2016-05-12] MEDS: Polyvinyl Alcohol Ophth Soln 15 mL Bottle EACH EYE SCH ×3 (05:47→14:25)
[2016-05-12] MEDS: Budesonide 0.5 Mg/2 mL Ud HHN SCH (07:21)
--- NOTE | 2016-05-12 07:40 | Progress Notes ---
PROBLEM LIST: 1. Lower gastrointestinal bleeding, probably hemorrhoids. 2. Cirrhosis of liver with encephalopathy. 3. Alcohol withdrawal. 4. Ascites, question as to GI bleeding. SYMPTOMS: The patient is sleepy, arousable, no respiratory distress, etc. PHYSICAL EXAMINATION: RECORDED VITAL SIGNS: Temperature is 98.7, blood pressure 137/67, saturation 94% on 2 liters per minute. HEENT: Conjunctivae pink. Sclerae yellowish. CHEST: Shows diminished air entry. HEART: Regular. ABDOMEN: Quite distended. LABORATORY DATA: The patient's white count is 10.3, hemoglobin is 8.6, not much changed. Electrolytes are okay with potassium 3.4 and the patient's total bilirubin is still high at 8.5 with a direct 5.9, not significant ____ difference and ammonia is still in mid 50s. ASSESSMENT: The patient clinically not significantly changed. PLANS AND SUGGESTIONS: We will go ahead and decrease IV fluids. We will start feeding through the tube and see how he does and go from there. JOB# [id number]
--- NOTE | 2016-05-12 07:56 | Diagnostic Imaging Report ---
Portable chest x-ray HISTORY: Shortness of breath, vascular catheter placement The heart appears enlarged. There is a poor inspiration. Linear density noted in the right lung base suggesting changes of subsegmental atelectasis. Right-sided vascular catheter is seen with the tip in the region of the superior vena cava. Nasogastric tube is noted. The tip appears to be near the diaphragm. A radiograph to include the upper abdomen would provide additional assessment. IMPRESSION: 1. Nasogastric tube tip visualized at the level of the diaphragm. This should be advanced. A dedicated radiographs of the upper abdomen would provide for further detail. 2. Right-sided vascular catheter with the tip in the region of the superior vena cava 3. Linear density within the right lower lobe suggesting subsegmental atelectasis.
[2016-05-12 08:04] LABS: MEAN CELL VOLUME 89.7 fl (80-99); MEAN CORPUSCULAR HEMOGLOBIN 30.5 pg (27.0-31.0); MEAN PLATELET VOLUME 9.1 fl; PLATELET COUNT 192 Th/cmm (150-400); RED BLOOD COUNT 2.94 Mil/cmm (3.80-5.80); RED CELL DISTRIBUTION WIDTH 19.6 % (11.5-20.0)
[2016-05-12 08:06] LABS: WHITE BLOOD COUNT 22.9 Th/cmm (4.8-10.8)
[2016-05-12 08:07] LABS: HEMATOCRIT 26.4 % (39.0-49.0)
[2016-05-12 09:04] LABS: BAND NEUTROPHILE 5 % (0-10); NEUTROPHILS 85 % (40-80); TOTAL CELLS COUNTED 100
[2016-05-12 09:05] LABS: PLATELET ESTIMATE ADEQUATE (NORMAL); PLATELET MORPHOLOGY GIANT PLATELETS SEEN (NORMAL); ROULEAUX 1+
[2016-05-12] MEDS: Lactulose 10 Gm/15 mL 30mL UDC PO SCH ×2 (09:44→14:25)
[2016-05-12] MEDS: Lactobacillus Rhamnosus 10 Billion CFU Capsule GT SCH (09:45)
--- NOTE | 2016-05-12 11:07 | Diagnostic Imaging Report ---
Portable chest x-ray HISTORY: Nasogastric tube and evaluation Compared with the prior exam of May 11, 2016, the exam demonstrates a nasogastric tube extending into the region of the stomach. No focal pulmonary processes are seen. IMPRESSION: 1. Nasogastric tube extending into the region of the stomach.
[2016-05-12] MEDS ORDERED: Potassium Phosphate 20 MMOLE in Sodium Chloride 0.9% 250 ML IV ONE (16:00)
--- NOTE | 2016-05-12 20:59 | Progress Notes ---
PULMONARY PROGRESS NOTE PROBLEM LIST: 1. Alcoholic encephalopathy. 2. ____ secondary to above. 3. Ascites. 4. Significant ___ presumably from above. SYMPTOMS: None. Noncommunicative. Barely opens eyes. No respiratory distress, etc. PHYSICAL EXAMINATION: VITAL SIGNS: Temperature is 97.8, blood pressure 123/57, saturation 94 on 3 liters of oxygen. NECK: Veins not visualized. CHEST: Shows diminished air entry with occasional rhonchi. HEART: Regular. ABDOMEN: Soft and nontender. Quite distended. EXTREMITIES: Shows some chronic peripheral edema. LABORATORY DATA: The patient's white count is 22,000, hemoglobin 9 g and neutrophils 85% and platelet is low. The patient's electrolytes; potassium is 3.4, and the patient's calcium is 7.8. Total bilirubin not significantly changed, still direct bilirubin is 5.39 and the patient's ammonia is 74. ASSESSMENT: The patient clinically doing poorly, now has elevated white count, exact source, etc., is not clear. PLANS AND SUGGESTIONS: 1. We will give IV potassium. 2. We will recheck the blood count and also check x-rays, etc., before antibiotic can be started and go from there. JOB# [id number]
--- NOTE | 2016-05-20 | Discharge Summary ---
FINAL DIAGNOSES: 1. Massive nose bleed, status post packing. 2. Acute hematemesis and hematochezia, most likely from the massive nose bleed. As there was no definite finding on the endoscopy and there was suboptimal examination of colonoscopy on 05/11/2016 with internal hemorrhoids. Endoscopy on 05/02/2016 revealed chronic gastritis. On antrum biopsy, H. pylori negative. 3. Severe symptomatic anemia secondary to massive nose bleed and acute hematemesis and hematochezia.S/P MULTIPLE BT AND FFP 4. Acute respiratory failure. 5. Aspiration pneumonia. 6. Chronic alcoholism. 7. Alcoholic liver disease with liver cirrhosis and hepatic encephalopathy. 8. Delirium tremens secondary to alcohol withdrawal. HOSPITAL COURSE AND IMPORTANT LABS: A 70-year-old gentleman, presented to the Emergency Room with nose bleed and subsequently the patient also vomited blair blood and burgundy colored stool coming out from the rectal area. The patient required left side of the nose packing and admitted to the ICU, started on Sandostatin drip and IV Protonix drip. GI consult was obtained. On 05/02/2016, EGD done which revealed no acute bleeding site, no varices noted. Biopsy of the antrum revealed chronic gastritis, H. pylori negative. Subsequently on 05/11/2016, the patient had a colonoscopy done, which was suboptimal exam, internal hemorrhoids noted, otherwise unremarkable. The patient subsequently developed fever, aspiration suspected, and IV Zosyn started. The patient also had acute respiratory failure, requiring 100% nonrebreather mask, which subsequently went to the oxygen via nasal cannula. The patient also underwent delirium tremens and required significant amount of care in ICU. The patient subsequently transferred to the [facility] for ongoing care. JOB# [id number] GERONIMO
== END 2016-05-12 18:40 | DRG 177 ==
LOC: ER 09:05 → ICU 12:53
PROVIDERS: ADMIT Internal Medicine; ATTEND Internal Medicine
PROC: 2Y41X5Z Packing of Nasal Region using Packing Material (ICD-10-PCS; principal; 2016-05-01)
PROC: 30233N1 Transfusion of Nonautologous Red Blood Cells into Peripheral Vein, Percutaneous Approach (ICD-10-PCS; 2016-05-01)
PROC: 30233K1 Transfusion of Nonautologous Frozen Plasma into Peripheral Vein, Percutaneous Approach (ICD-10-PCS; 2016-05-02)
PROC: 0DB68ZX Excision of Stomach, Via Natural or Artificial Opening Endoscopic, Diagnostic (ICD-10-PCS; 2016-05-02)
PROC: 30233L1 Transfusion of Nonautologous Fresh Plasma into Peripheral Vein, Percutaneous Approach (ICD-10-PCS; 2016-05-02)
PROC: 02HV33Z Insertion of Infusion Device into Superior Vena Cava, Percutaneous Approach (ICD-10-PCS; 2016-05-02)
PROC: 0DJD8ZZ Inspection of Lower Intestinal Tract, Via Natural or Artificial Opening Endoscopic (ICD-10-PCS; 2016-05-11)
DX: J69.0 Pneumonitis due to inhalation of food and vomit (principal); J96.00 Acute respiratory failure, unspecified whether with hypoxia or hypercapnia; F10.231 Alcohol dependence with withdrawal delirium; R04.0 Epistaxis; K74.60 Unspecified cirrhosis of liver; K70.10 Alcoholic hepatitis without ascites; K70.40 Alcoholic hepatic failure without coma; I10 Essential (primary) hypertension; E78.5 Hyperlipidemia, unspecified; E78.00 Pure hypercholesterolemia, unspecified; E87.6 Hypokalemia; D50.9 Iron deficiency anemia, unspecified; G31.2 Degeneration of nervous system due to alcohol; K64.8 Other hemorrhoids; Z83.3 Family history of diabetes mellitus
CPT/HCPCS: 36415-UA; 36600-90; 71010-TC; 74000-TC; 76700-TC; 80048-TC; 80053-TC; 80061-TC; 80076-TC; 81001-TC; 82105-90; 82140-TC; 82150-TC; 82248-TC; 82270-TC; 82550-TC; 82607-90; 82746-90; 82803-TC; 83036-90; 83540-90; 83550-90; 83690-TC; 83735-TC; 84100-TC; 84443-TC; 84550-TC; 85007-TC; 85014-TC; 85018-TC; 85025-TC; 85027-TC; 85610-TC; 85730-TC; 86803-90; 86850-TC; 86900-TC; 86901-TC; 86922-TC; 87086-90; 87338-TC; 87340-90; 88305-90; 88312-90; 90784; 90799; 93005; 94640; C1751; C9113; J2060; J2250; J2354; J2405; J2543; J2760; J3411; J3475; J3480; J7030; J7040; J7042; P9016; P9017; X3401; X6024; X6452; X6488; X6598; Z7610